=== PATIENT | male | born 2005 | race Caucasian/White ===

== ENCOUNTER 2024-10-08 20:19 | Emergency (ER) | payer BC, SELFPAY ==
[2024-10-08 20:28] VITALS: BP 157/104
--- NOTE | 2024-10-08 23:44 | ED.GENMED ---
History of Present Illness
General
Chief Complaint: Musculo-Skeletal Complaint
Source: patient
Exam Limitations: none
Time Seen by Provider: 10/08/24 23:44
Nursing documentation reviewed up to this point in time: agreed with
History of Present Illness
History of Present Illness:
Note:
CHIEF COMPLAINT(S)
Ingrown toe nail
HISTORY OF PRESENT ILLNESS
The patient is a 18-year-old male with a pmh of ingrown toe nails presents to the ER today with concerns pain to his left big toe. Patient reports that he has an ingrown toe nail on his left big toe that he has had for a month and a half. He has had
multiple ingrown toenails on the same toe, with past interventions including nail avulsion by a supervisor of communications and application of an ointment to prevent regrowth. The patient has been experiencing symptoms following episodes of wearing tight shoes,
which she believes resulted in overlapping skin. He describes current symptoms as pressure. The patient denies fever or systemic symptoms. He denies any nausea or vomiting. He denies any redness traveling up the leg.
SOCIAL DETERMINANTS AFFECTING HEALTH
The patient has been engaged in activities involving prolonged walking, such as attending a sports event and visiting the beach
REVIEW OF SYSTEMS
see hpi
PHYSICAL EXAM
Nursing notes reviewed and vital signs reviewed.
General: Patient is well appearing and in no acute distress; non-toxic
Skin: Warm and dry, redness noted limited to skin of left great toe
Head: Normocephalic, atraumatic
Eyes: Sclera non-icteric. EOMs intact.
Cardiac: Regular rate
Peripheral Vascular: Brisk capillary refill
Pulm: Normal respiratory effort
Musculoskeletal: No bony tenderness to palpation of the left lower extremity. Tenderness to palpation along the nail fold of the first left great toe with ingrown toe nail involving both sides of the nail bed.
Neuro: CN II-XII intact, no focal neurologic deficits.
Psychiatric: Appropriate mood and affect.
PLAN
- David the infected area to drain pus.
- Initiate antibiotic therapy.
- Advise continuation of warm soaks with salt.
- Recommend follow-up with the supervisor of communications for further management and assessment.
DIFFERENTIAL DIAGNOSIS
The Differential Diagnosis includes, in no particular order and is not limited to:
- Onychocryptosis (ingrown toenail)
- Paronychia
- Subungual abscess
- Cellulitis
- Trauma-induced hematoma
- Tinea pedis with secondary bacterial infection
- Contact dermatitis
CHART REVIEW
Reviewed ER physician documentation from 01/16/18
MDM/DISPOSITION
The patient is a 18-year-old male with a pmh of ingrown toe nails presents to the ER today with concerns pain to his left big toe. Patient reports that he has an ingrown toe nail on his left big toe that he has had for a month and a half. He has
tried warm water soaks with epsom salts as well as honey. He has not called his supervisor of communications for this current episode. He has not tried an abx. He has had multiple ingrown toenails on the same toe and has had multiple procedures done on that toe by
his supervisor of communications. I performed a digital block of that toe with 1% lidocaine. Sensation was tested with pin prick and he stated he felt numb. I went to go undermine the skin of the lateral left big toe and as I started to make a small incision when
patient states that he started to feel pain. Did drain some pus with this incision. I did offer attempting a digital block again and discussed alternative ways to manage his pain and did offer attempting to removal a portion of the nail however
patient states that he would rather trial an antibiotic and continue to do warm soaks at home and call his supervisor of communications later today. I think this is a reasonable plan especially considering patient has had multiple procedures done on the same toe.
Review of Systems
Review of Systems
All Other Systems: ROS reviewed and negative except as documented in HPI and ROS
Phy Exam
Physical Exam
Physical Exam:
see hpi
Course
Orders/Labs/Results
Orders:
Orders
10/09/24 00:44
Ibuprofen [Motrin] 400 mg PO NOW STA
Sulfamethox./Trimethoprim Ds [Bactrim Ds 800 mg/160 mg] 1 tablet PO NOW STA
Vital Signs
Initial and Last Documented VS:
Initial Vital Signs
Temp Pulse Resp BP Pulse Ox
98.8 F 108 18 157/104 99
10/08/24 20:28 10/08/24 20:28 10/08/24 20:28 10/08/24 20:28 10/08/24 20:28
Last Documented Vital Signs
Temp Pulse Resp BP Pulse Ox
98.8 F 108 18 157/104 99
10/08/24 20:28 10/08/24 20:28 10/08/24 20:28 10/08/24 20:28 10/08/24 23:45
Procedures
Digital Block
Location of injection for digital block: base of digit
Indiction for Digital Block: other (I+D)
Was sensory exam normal prior to exam?: intack pin prick
Type of anesthesia: other (1% lidocaine NO epi)
Complications: none- partial anesthesia
*Pulse Oximetry
SaO2: 99
*Critical Care Note
Total Time (30-74mins, 75-104mins- exclusive of procedures): Not Applicable
ED Attending Note
-
Portions of this chart may have been created with voice recognition software.� Occasional wrong word or��sound alike� substitutions may have occurred due to the inherent limitations of voice recognition software.
Discharge Plan
Departure
Patient Disposition: Home (Routine Discharge)
Date of Disposition: 10/09/24
Time of Disposition: 00:50
Patient with high blood pressure during this ER visit?: Yes
Discharge Problem:
Ingrown nail of great toe, Cellulitis
Instructions: Cellulitis (skin infection) in adults - Discharge instructions, Ingrown toenail - ED discharge instructions, BLOOD PRESSURE
Prescriptions:
New
sulfamethoxazole-trimethoprim [Bactrim DS] 800-160 mg tablet
1 tab PO BID 7 Days Qty: 14 0RF
Referrals:
NONE,* [Family Provider, Internal Medicine]
Activity Restrictions/Additional Instructions:
Please follow up with your supervisor of communications and call when the office opens tomorrow morning to schedule an appointment.
Bactrim has been sent to your pharmacy. Please take 1 tablet twice daily for 7 days.
Please continue to do warm water soaks.
PLEASE RETURN EMERGENCY DEPARTMENT SHOULD YOU DEVELOP CHEST PAIN, SHORTNESS OF BREATH, SPREADING OF THE REDNESS OF THE FOOT, FEVERS OR CHILLS, LOSS OF SENSATION IN YOUR FOOT, OR ANY OTHER SIGNS OR SYMPTOMS WORRISOME TO YOU.
Interventions
Interventions:
*Risk Screen - Suicide Last Done: 10/08/24 20:30
*General Assessment Last Done: 10/08/24 20:30
*Neglect/Abuse Screening Last Done: 10/08/24 20:30
*ED- Fall Risk Assessment Last Done: 10/09/24 00:41
*ED COVID-19 Vaccine History Last Done: 10/08/24 20:30
*Nursing Disposition Last Done: 10/09/24 00:56
ED-Musculoskeletal Assessment Last Done: 10/08/24 22:42
Discharge Date and Time
Discharge Date/Time: 10/09/24 00:56
Print Language: SERBIAN
[2024-10-09] MEDS: BACTRIM DS 800 MG/160 MG 1 TABLET PO (00:53)
[2024-10-09] MEDS: MOTRIN 400 MG PO (00:53)
== END 2024-10-09 00:56 | disposition home or self-care (01) ==
LOC: EMR 20:19
PROVIDERS: EMERGENCY PHYSICIAN Student in an Organized Health Care Education/Training Program
DX: L60.0 Ingrowing nail (principal); L03.116 Cellulitis of left lower limb; R03.0 Elevated blood-pressure reading, without diagnosis of hypertension
CPT/HCPCS: 64450; 99284; 10060